=== PATIENT | male | born 1965 | race Caucasian/White ===

== ENCOUNTER 2017-07-11 05:50 | Day surgery (SDC) | payer BC ==
[2017-07-11] MEDS ORDERED: LR 1,000 ML IV ONE (06:45)
--- NOTE | 2017-07-11 07:00 | PDANEPAE ---
ANE Past Medical History - Cardiovascular History Hx Hypertension: Yes Hx Arrhythmias: No Hx Chest Pain: No Hx Coronary Artery / Peripheral Vascular Disease: No Hx CHF / Valvular Disease: No Hx Palpitations: No Cardiovascular History Comment: hyperlipidemia - Pulmonary History Hx COPD: No Hx Asthma/Reactive Airway Disease: No Hx Recent Upper Respiratory Infection: No Hx Oxygen in Use at Home: No Hx Sleep Apnea: No Sleep Apnea Screening Result - Last Documented: Negative - Neurologic History Hx Cerebrovascular Accident: No Hx Seizures: No Hx Dementia: No Neurologic History Comment: cluster headaches. essential tremor. 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 reflux. hiatal hernia - Other Health History Other Health History: none - Chronic Pain History Chronic Pain: No - Surgical History Prior Surgeries: tonsillectomy in 1970. rigo fundoplication 2005. endoscopy x2. colonoscopy x1. tendonitis surg 2014. april 2016 appy. week later had to remove abscesses and place drainage tubes ANE Review of Systems Review of Systems: - Exercise capacity METS (RN): 4 METS ANE Patient History - Allergies Allergies/Adverse Reactions: No Known Allergies Allergy (Verified 07/10/17 16:20) - Home Medications Home Medications: Bentyl 10 MG (*) 07/10/17 [Last Taken 07/09/17] Lisinopril 07/10/17 [Last Taken 07/10/17] Rabeprazole Sodium 07/10/17 [Last Taken 07/10/17] lamOTRIGine 07/10/17 [Last Taken Unknown] - NPO status NPO Since - Liquids (Date): 07/10/17 NPO Since - Liquids (Time): 22:30 NPO Since - Solids (Date): 10/15/14 - Smoking Hx Smoking Status: Heavy smoker - Family Anes Hx Family Hx Anesthesia Complications: none ANE Labs/Vital Signs - Vital Signs Blood Pressure: 109/72 Heart Rate: 58 Respiratory Rate: 16 O2 Sat (%): 97 Height: 177.8 cm Weight: 77.111 kg ANE Physical Exam - Airway Mallampati Score: Class 2 - ASA Status ASA Status: II ANE Anesthesia Plan Total IV Anesthesia: Yes
[2017-07-11] MEDS ORDERED: PROPOFOL/EMULSION 500 MG/50 ML BOTTLE IV ONE (07:04)
--- NOTE | 2017-07-11 07:07 | PDGENHP ---
History & Physical Chief Complaint: RLQ pain Cardiorespiratory Assessment: GEN: NAD. Cardiac: RRR. Lungs: CTA B. Abd: Soft , nt, nd
[2017-07-11] MEDS ORDERED: ALBUTEROL 3 ML DEYVIAL IH PRN (08:00)
[2017-07-11] MEDS ORDERED: LR 500 ML IV PRN (08:00)
[2017-07-11] MEDS ORDERED: ONDANSETRON 4 MG/2 ML VIAL IVP PRN (08:00)
[2017-07-11] MEDS ORDERED: NALOXONE HCL 0.4 MG/ML INJ IVP PRN (08:00)
[2017-07-11] MEDS ORDERED: fentaNYL 100 MCG/2 ML INJ IVP PRN (08:00)
[2017-07-11 08:01] VITALS: TEMP 97.9
--- NOTE | 2017-07-11 08:01 | POSTANESTH ---
Post Anesthetic Evaluation Cardiovascular Status: Normal, Stable Respiratory Status: Normal, Stable Level of Consciousness/Mental Status: Can Participate in Eval Pain Control: Adequate, Prn Tx Ordered Nausea/Vomiting Control: Adequate, Prn Tx Ordered Complications Possibly Related to Anesthesia: None Noted
--- NOTE | 2017-07-11 08:01 | GIREPORT ---
[facility] Surgical Services - Endoscopy Department Patient Name: Desmond Mederos Procedure Date: 07/11/2017 7:24 AM Patient Type: Outpatient Attending MD/ ER Physician: Xavier Mae MD Procedure: Colonoscopy Indications: Abdominal pain in the right lower quadrant. Hx of colon polyp. His last colonoscopy was 4 years ago. Providers: Xavier Mae MD Medicines: Monitored Anesthesia Care Complications: No immediate complications. Description of Procedure: After obtaining informed consent, the scope was passed under direct vis ion. Throughout the procedure, the patient's blood pressure, pulse, and oxyg en saturations were monitored continuously. The Colonoscope with irrigatio n channel was introduced through the anus and advanced to the terminal il eum, with identification of the appendiceal orifice and IC valve. The patien t tolerated the procedure well. The quality of the bowel preparation was good. Findings: The perianal and digital rectal examinations were normal. The terminal ileum appeared normal. A 8 mm polyp was found in the transverse colon. The polyp was sessile. The polyp was removed with a cold snare. Resection and retrieval were compl ete. Verification of patient identification for the specimen was done by the physician and nurse using the patient's name and date. Estimated blood loss was minimal. A few small-mouthed diverticula were found in the sigmoid colon and descending colon. The retroflexed view of the distal rectum and anal verge was normal and showed no anal or rectal abnormalities. Estimated Blood Loss: Estimated blood loss: none. Post Op Diagnosis: - The examined portion of the ileum was normal. - One 8 mm polyp in the transverse colon, removed with a cold snare. Resected and retrieved. - Diverticulosis in the sigmoid colon and in the descending colon. - The distal rectum and anal verge are normal on retroflexion view. Recommendation: - Discharge patient to home (with escort). - High fiber diet. - Continue present medications. - Continue Bentyl 20mg orally twice per day for right lower quadrant abdominal pain. - Repeat colonoscopy in 5 years for surveillance (personal history of polyps). - Await pathology results. Results are available within 10 days. - Follow up in GI clinic as previously scheduled. - Thank you for allowing me to participate in the care of your patient. Attending Participation: I personally performed the entire procedure. Xavier Mae MD Xavier Mae MD 07/11/2017 8:00:53 AM This report has been signed electronicallyDacarolynn Mae MD Number of Addenda: 0 Note Initiated On: 07/11/2017 7:24 AM Total Procedure Duration Time 0 hours 22 minutes 0 seconds [email or web address]
[2017-07-11 09:08] VITALS: BP 116/70; PULSE 70; RESP 16; O2SAT 98
== END 2017-07-11 09:08 | disposition home or self-care (01) ==
LOC: FSGY 05:50
PROVIDERS: ATTEND Internal Medicine Gastroenterology
PROC: 0DBL8ZX Excision of Transverse Colon, Via Natural or Artificial Opening Endoscopic, Diagnostic (ICD-10-PCS; principal; 2017-07-11 07:30)
DX: R10.31 Right lower quadrant pain (principal); K57.30 Diverticulosis of large intestine without perforation or abscess without bleeding; E78.5 Hyperlipidemia, unspecified; F17.200 Nicotine dependence, unspecified, uncomplicated
CPT/HCPCS: J2704

== ENCOUNTER → 2018-07-06 | Outpatient (CLI) | payer OTHER | LOC: FIMAGING 08:08 | PROVIDERS: ATTEND Internal Medicine | DX: R91.8 Other nonspecific abnormal finding of lung field (principal) ==